=== PATIENT | male | born 1995 | race Caucasian/White ===

== ENCOUNTER 2023-07-29 09:16 | Day surgery (SDC) | payer MEDICARE, OTHER, SELFPAY ==
[2023-07-29] VITALS (11 sets, daily range): BP systolic 105–132; BP diastolic 58–97; PULSE 53–78; RESP 16–18; TEMP 35.8–36.4; O2SAT 93–98
--- OUTSIDE RECORDS SUMMARY | 2023-07-29 09:18 | XMS_ITS | Encounter Summary ---
Author Organization [facility] Address [address] [address] Phone Care Team Providers Care Welding Specialist Name Role Phone Jerry Martinez MD Primary Care Provider [phone] Reason for Visit * Reason Comments Recheck Scalp psoriasis Encounter Details Date Type Department Care Team (Late st Contact Info) Description 05/31/2023 3:30 PM CDT Office Visit [facility] [address] [place] [phone] Clyde Murdock, PASheryl [address] [address] Scalp psoriasis (Primary Dx) Social History Tobacco Use Types Packs/Day Years Used Date Smoking Tobacco: Never Smokeless Tobacco: Never Alcohol Use Standard Drinks/Week Comments Yes 0 (1 standard drink = 0.6 oz pur e alcohol) occasional drink PHQ-2 Answer Date Recorded PHQ-2 Total 0 05/25/2023 Sex and Gender Information Value Date Recorded Sex Assigned at Not on file Gender Identity Not on file Sexual Orientation Not on file Job Start Date Occupation Industry Not on file Not on file Not on file documented as of this encounter Functional Status Functional Status Response Date of Assess ment Patient's Vision Adequate to Safely Complete Daily Activities Yes 05/20/2022 Patient's Memory Adequate to Safely Complete Daily Activities Yes 05/20/2022 Cognitive Status Response Date of Assessm ent Patient's Judgment Adequate to Safely Complete Daily Activities Yes 05/20/2022 documented as of this encounter Patient Instructions * Patient Instructions* Dian Calixto, HORSE RACING MANAGER - 05/31/2023 3:30 PM CDT 1. Scalp psoriasis (Primary) Assessment & Plan: 05/31/23 PLAN: Refills are good for 3 months - Continue Betamethasone Valerate lotion 0.1% twice weekly for maintenance Tuesday and and then for severe flare ups Twice daily for 2-3 weeks when flared and then back down to 2 days a week again Tuesday and . - Continue Ketoconazole shampoo every other day, leave on for 5 minutes and rinse out - Start Ketoconazole cream 2% daily to affected areas of scalp #60 2RF Discussed stress/anxiety management Photos take today RTC 3 months Discussed Otezla, I would need to look into this medication with his seizure disorder and his medications EXAM/DISCUSSION:Improved Patient here for evaluation and treatment of their Psoriasis- this is a follow up visit after pathology confirmation of diagnosis We have reviewed their previously attempted treatments, if applicable. On exam today there are fewer sharply marginated pink-red plaques with mild white-silver scale on the scalp without nail involvement. Patient reports they don't have joint pain or stiffness. Patient reports he does not have any other skin involvement Patient does have on going stress and anxiety Overall there is approximately 2%of the body surface area involved by Psoriasis today. Treatment recommendations are outlined above. It is additionally recommended that the patient talk with their Primary Care Provider if they have any concerns about their joints or heart as people with Psoriasis are at an increased risk for inflammatory conditions in these categories. RTC: 3 months - NEEDS 30 MINUTE APPOINTMENTS Scribed by: TRACI Mendez Orders: - ketoconazole (NIZORAL) 2 % topical cream; Apply topically one time a day. Apply to affected areasof scalp daily Indications: scalp psoriasis documented in this encounter Ordered Prescriptions Prescription Sig Dispensed Refills Start Date End Da te ketoconazole (NIZORAL) 2 % topical creamIndications:scalp psoriasis Apply topically one time a day. Apply to affected areas of scalp daily Indications: scalp psoriasis 60 g 3 05/31/2023 documented in this encounter Progress Notes * Clyde Murdock PA-C - 05/31/2023 3:30 PM CDT Images from the original note were not included. [facility] Office Visit Note Chief Complaint Patient presents with Recheck Scalp psoriasis Patient presents with: other caregiver Grandma Verbal phone consent current? Yes Patient is: Established Patient HPI: Location: scalp Duration: last exam 02/24/23 Timin week ago scalp flared up, unsure why Symptoms/Quality: flaking skin, redness Severity: itching, denies pain Previous Treatment: Cephalexin 500mg three times daily for 10 days, Clindamycin 1% lotion twice daily ran out 1 week ago, Body lotion, Tea tree shampoo Current Treatment: Betamethasone Valerate lotion 0.1% once daily,Ketoconazole shampoo every other day, leave on for 5 minutes and rinse out Associated symptoms: Skin, left temporal scalp, punch: - Psoriasiform dermatitis, see comment. Probable psoriasis. NO sign of fungal infection or bacterial infection COMMENT: The histologic differential diagnosis includes psoriasis vulgaris, sebopsoriasis, and a psoriasiform medication reaction. Seborrheic dermatitis could be considered, but the prominent spongiosis typically associated with the condition is not observed, making this possibility less likely. A PAS stain performed with proper positive control does not reveal evidence of a fungal infection. Clinical correlation is advised. ASSESSMENT / PLAN Dermoscopy was used during the exam of the skin lesions and reveals benign appearing features unless otherwise specified in this note. Problem List Items Addressed This Visit Scalp psoriasis - Primary 05/31/23 PLAN: Refills are good for 3 months - Continue Betamethasone Valerate lotion 0.1% twice weekly for maintenance Tuesday and and then for severe flare ups Twice daily for 2-3 weeks when flared and then back down to 2 days a week again Tuesday and . - Continue Ketoconazole shampoo every other day, leave on for 5 minutes and rinse out - Start Ketoconazole cream 2% daily to affected areas of scalp #60 2RF Discussed stress/anxiety management Photos take today RTC 3 months Discussed Otezla, and this is not an option with his medications. Consider Dannielle EXAM/DISCUSSION:Improved Patient here for evaluation and treatment of their Psoriasis- this is a follow up visit after pathology confirmation of diagnosis We have reviewed their previously attempted treatments, if applicable. On exam today there are fewer sharply marginated pink-red plaques with mild white-silver scale on the scalp without nail involvement. Patient reports they don't have joint pain or stiffness. Patient reports he does not have any other skin involvement Patient does have on going stress and anxiety Overall there is approximately 2%of the body surface area involved by Psoriasis today. Treatment recommendations are outlined above. It is additionally recommended that the patient talk with their Primary Care Provider if they have any concerns about their joints or heart as people with Psoriasis are at an increased risk for inflammatory conditions in these categories. Relevant Medications ketoconazole (NIZORAL) 2 % topical cream RTC: 3 months Scribed by: TRACI Mendez By signing this encounter I attest that I, the provider, personally examined the patient myself andhave reviewed the scribed documentation of this visit and have updated it as necessary. Future Appointments Provider Department Center 08/30/2023 3:30 PM (Arrive by 3:15 PM) Clyde Murdock PA-C [facility] documented in this encounter Miscellaneous Notes * Assessment & Plan Note - Dian Calixto LPN - 05/31/2023 3:15 PM CDT Associated Problem(s): Scalp psoriasis Images from the original note were not included. 05/31/23 PLAN: Refills are good for 3 months - Continue Betamethasone Valerate lotion 0.1% twice weekly for maintenance Tuesday and and then for severe flare ups Twice daily for 2-3 weeks when flared and then back down to 2 days a week again Tuesday and . - Continue Ketoconazole shampoo every other day, leave on for 5 minutes and rinse out - Start Ketoconazole cream 2% daily to affected areas of scalp #60 2RF Discussed stress/anxiety management Photos take today RTC 3 months Discussed Otezla, and this is not an option with his medications. Consider Dannielle EXAM/DISCUSSION:Improved Patient here for evaluation and treatment of their Psoriasis- this is a follow up visit after pathology confirmation of diagnosis We have reviewed their previously attempted treatments, if applicable. On exam today there are fewer sharply marginated pink-red plaques with mild white-silver scale on the scalp without nail involvement. Patient reports they don't have joint pain or stiffness. Patient reports he does not have any other skin involvement Patient does have on going stress and anxiety Overall there is approximately 2%of the body surface area involved by Psoriasis today. Treatment recommendations are outlined above. It is additionally recommended that the patient talk with their Primary Care Provider if they have any concerns about their joints or heart as people with Psoriasis are at an increased risk for inflammatory conditions in these categories. documented in this encounter Plan of Treatment Upcoming Encounters Date Type Department Care Team (Late st Contact Info) Description 08/05/2023 1:00 PM CDT Appointment [facility] [address] [facility] [address] [place] [phone] Donaldo Goldstein MD [address] [place] [address] 08/30/2023 3:30 PM CDT Appointment [facility] [address] [place] [phone] Clyde Murdock PA-C [address] [facility] [address] [place] [address] documented as of this encounter Visit Diagnoses Diagnosis Scalp psoriasis- Primary Other psoriasis documented in this encounter Discontinued Medications Medication Sig Discontinue Reason Start Date End Da te clindamycin (Cleocin-T) 1 % lotion Apply topically as needed for Other (scalp). Patient quit taking 12/18/2022 05/31/2023 documented as of this encounter Care Teams Welding Specialist Relationship Specialty Start Date End Date Jerry Martinez MD [address] [place] [address] PCP - General Internal Medicine 05/09/23 documented as of this encounter
--- OUTSIDE RECORDS SUMMARY | 2023-07-29 09:18 | XMS_ITS | Encounter Summary ---
Author Organization [facility] Address [address] [address] Phone Care Team Providers Care Boiler Welder Name Role Phone Jerry Martinez MD Primary Care Provider [phone] Reason for Referral * Office Visit (Routine) - Closed Specialty Diagnoses / Procedures Referred By Contac t Referred To Contact Neurology Diagnoses Essential hypertension Snoring Masha Hoyt MD [address] [place] [phone] [facility] [address] [phone] Referral ID Status Reason Start Date Expiration Date Visits Re quested Visits Authorized [id number] Closed 07/18/2023 07/12/2024 1 1 Comments consult sleep Encounter Details Date Type Department Care Team (Late st Contact Info) Description 07/13/2023 Orders Only [facility] [address] [phone] Shaila Palmer Essential hypertension (Primary Dx); Snoring Social History Tobacco Use Types Packs/Day Years Used Date Smoking Tobacco: Never Smokeless Tobacco: Never Alcohol Use Standard Drinks/Week Comments Yes 0 (1 standard drink = 0.6 oz pur e alcohol) occasional drink PHQ-2 Answer Date Recorded PHQ-2 Total 4 07/19/2023 Sex and Gender Information Value Date Recorded [...] Yes 05/20/2022 documented as of this encounter Progress Notes * Shaila Palmer - 07/13/2023 8:18 AM CDT Interal/Michelle Sleep study/Medicaid/medica Hypertension/snoring Ess: Notes: telephone note * Jorge Luis Palma - 07/13/2023 8:18 AM CDT Consult nn documented in this encounter Plan of Treatment Upcoming Encounters Date Type Department Care Team (Late st Contact Info) Description 08/05/2023 1:00 PM CDT Appointment [facility] [address] [phone] Donaldo Goldstein MD [address] [place], [place] [address] 08/30/2023 3:30 PM CDT Appointment [facility] [address] [place] [phone] Clyde Murdock PA-C [address] [phone] Scheduled Referrals Name Type Priority Associated Diagnoses Orde r Schedule APPT WITH SLEEP CENTER CC REFERRAL Routine Essential hypertension Snoring Ordered: 07/18/2023 documented as of this encounter Visit Diagnoses Diagnosis Essential hypertension- Primary Unspecified essential hypertension Snoring Other dyspnea and respiratory abnormality documented in this encounter Care Teams Boiler Welder Relationship Specialty Start Date End Date Jerry Martinez MD [address] [place] [address] PCP - General Internal Medicine 05/09/23 documented as of this encounter
--- OUTSIDE RECORDS SUMMARY | 2023-07-29 09:18 | XMS_ITS | Encounter Summary ---
Author Organization [facility] Address [address] [address] Phone Care Team Providers Care Manager Production Name Role Phone Olivier Martinez MD Primary Care Provider [phone] Reason for Referral * Office Visit (Routine) - Closed Specialty Diagnoses / Procedures Referred By Contac t Referred To Contact Neurology Diagnoses Hypertension, unspecified type Snoring Olivier Martinez MD [address] [place] [address] [facility] [address] [place] [phone] Referral ID Status Reason Start Date Expiration Date Visits Re quested Visits Authorized [id number] Closed 07/11/2023 07/10/2024 1 1 Comments Appt with Sleep Center: to schedule Sleep Study Witnessed Apneas (yes/no): no Habitual nightly snoring (yes/no): yes Daytime somnolence (yes/no): Please go to [employer], search for [place] and complete the [place] Sleepiness Scale Enter the [place] Sleepiness Score here: Reason for Visit * Reason Onset Date Comments Referral 07/05/2023 Encounter Details Date Type Department Care Team (Late st Contact Info) Description 07/05/2023 Telephone [facility] [address] [place] [phone] Olivier Martinez MD [address] [place] [address] Referral Social History Tobacco Use Types Packs/Day Years [...] Yes 05/20/2022 documented as of this encounter Miscellaneous Notes * Addendum Note - Olivier Martinez MD - 07/11/2023 8:49 AM CDTAddended by: OLIVIER MARTINEZ on: 07/11/2023 08:49 AM Modules accepted: Orders * Telephone Encounter - Anne-Marie Colon LPN - 07/06/2023 2:58 PM CDT ENT is out of [place]- mom stated that ENT said with patient's snoring and HTN he should be evaluated for sleep apnea- mom stated that ENT stated order should come from PCP. Mom aware PCP out of clinic till Tuesday * Telephone Encounter - Janine Espinoza - 07/05/2023 9:37 AM CDT Patients grandmother, Paige, calling regarding requesting referral be placed for a sleep study as patient ENT recommended it. Routing to nursing for review. documented in this encounter Plan of Treatment Upcoming Encounters Date Type Department Care Team (Late st Contact Info) Description 08/05/2023 1:00 PM CDT Appointment [facility] [address] [facility] [address] [place] [phone] Donaldo Goldstein MD [address] [place] [address] 08/30/2023 3:30 PM CDT Appointment [facility] [address] [place] [phone] Clyde Murdock, PA-C [address] [address] Scheduled Referrals Name Type Priority Associated Diagnoses Orde r Schedule APPT WITH SLEEP CENTER CC REFERRAL Routine Hypertension, unspecified type Snoring Ordered: 07/11/2023 documented as of this encounter Visit Diagnoses Diagnosis Hypertension, unspecified type- Primary Snoring Other dyspnea and respiratory abnormality documented in this encounter Care Teams Manager Production Relationship Specialty Start Date End Date Olivier Martinez MD [address] [place] [phone] PCP - General Internal Medicine 05/09/23 documented as of this encounter
--- OUTSIDE RECORDS SUMMARY | 2023-07-29 09:18 | XMS_ITS | Encounter Summary ---
Author Organization [facility] Address [address] [address] Phone Care Team Providers Care Knitted Cloth Examiner Name Role Phone Jerry Martinez MD Primary Care Provider [phone] Reason for Visit * Reason Comments Refill Request Encounter Details Date Type Department Care Team (Late st Contact Info) Description 05/09/2023 Refill [facility] [address] [place] [phone] Hira Pierre MD [address] [place] [address] [phone] Refill Request Social History Tobacco Use Types Packs/Day Years Used Date Smoking Tobacco: Never Smokeless Tobacco: Never Alcohol Use Standard Drinks/Week Comments Yes 0 (1 standard drink = 0.6 oz pur e alcohol) occasional drink PHQ-2 Answer Date Recorded PHQ-2 Total 2 05/09/2023 Sex and Gender Information Value Date Recorded [...] Yes 05/20/2022 documented as of this encounter Plan of Treatment Upcoming Encounters Date Type Department Care Team (Late st Contact Info) Description 08/05/2023 1:00 PM CDT Appointment [facility] 560 [facility] [address] [place] [phone] Donaldo Goldstein MD [address] [place] [address] 08/30/2023 3:30 PM CDT Appointment [facility] [address] [place] [phone] Clyde Murdock PASheryl [address] [phone] documented as of this encounter Visit Diagnoses Diagnosis Depression with anxiety Dysthymic disorder Hypertension, unspecified type documented in this encounter Care Teams Knitted Cloth Examiner Relationship Specialty Start Date End Date Jerry Martinez MD [address] [place] [address] PCP - General Internal Medicine 05/09/23 documented as of this encounter
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
--- OUTSIDE RECORDS SUMMARY | 2023-07-29 09:18 | XMS_ITS | Encounter Summary ---
Author Organization [facility] Address [address] [address] Phone Care Team Providers Care Banking Officer Name Role Phone Jerry Martinez MD Primary Care Provider [phone] Encounter Details Date Type Department Care Team (Latest Contact Info) Description 05/24/2023 Travel Social History Tobacco Use Types Packs/Day Years [...] Info) Description 08/05/2023 1:00 PM CDT Appointment [facility] [address] [facility] [address] [place] [phone] Donaldo Goldstein MD [address] [place], [place] [phone] 08/30/2023 3:30 PM CDT Appointment [facility] [address] [facility] [phone] Clyde Murdock, JOVANNA-Ghislaine [address] [address] documented as of this encounter Visit Diagnoses Not on filedocumented in this encounter Care Teams Banking Officer Relationship Specialty Start Date End Date Jerry Martinez MD [address] [place] [address] PCP - General Internal Medicine 05/09/23 documented as of this encounter
--- OUTSIDE RECORDS SUMMARY | 2023-07-29 09:18 | XMS_ITS | Encounter Summary ---
Author Organization [facility] Address [address] [address] Phone Care Team Providers Care Clam Grader Name Role Phone Jerry Martinez MD Primary Care Provider [phone] Encounter Details Date Type Department Care Team (Latest Contact Info) Description 07/18/2023 Travel Social History Tobacco Use Types Packs/Day [...] Info) Description 08/05/2023 1:00 PM CDT Appointment [facility] [address] [facility] [address] [place] [phone] Donaldo Goldstein MD [address] [place], [place] [phone] 08/30/2023 3:30 PM CDT Appointment [facility] [address] [facility] [place] [phone] Clyde Murdock, JOVANNA-Ghislaine [address] [address] documented as of this encounter Visit Diagnoses Not on filedocumented in this encounter Care Teams Clam Grader Relationship Specialty Start Date End Date Jerry Martinez MD [address] [place] [address] PCP - General Internal Medicine 05/09/23 documented as of this encounter
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
--- OUTSIDE RECORDS SUMMARY | 2023-07-29 09:19 | XMS_ITS | Encounter Summary ---
Author Organization [facility] Address [address] [address] Phone Care Team Providers Care Ornamental Machine Operator Name Role Phone Unavailable Primary Care Provider Unavailabl e Reason for Visit * Reason Comments Refill Request Encounter Details Date Type Department Care Team (Late st Contact Info) Description 05/03/2023 Refill [facility] INTERNAL MEDICINE [address] [place] [phone] Jerry Martinez MD [address] [place] [address] Refill Request Social History Tobacco Use Types Packs/Day Years Used Date Smoking Tobacco: Never Smokeless Tobacco: Never Alcohol Use Standard Drinks/Week Comments Yes 0 (1 standard drink = 0.6 oz pur e alcohol) occasional drink PHQ-2 Answer Date Recorded PHQ-2 Total 4 02/09/2023 Sex and Gender Information Value Date Recorded [...] Yes 05/20/2022 documented as of this encounter Ordered Prescriptions Prescription Sig Dispensed Refills Start Date End Da te metoprolol succinate (Toprol-XL) 25 MG 24 hour extended-release tabletIndications:Depress ion with anxiety,Hypertension, unspecified type TAKE 1 TABLET BY MOUTH DAILY. DO NOT CRUSH OR CHEW 7 Tablet 05/04/2023 05/09/2023 documented in this encounter Miscellaneous Notes * Telephone Encounter - Rogelio Robertson RN - 05/03/2023 6:58 PM CDT Medication: Metoprolol 25 mg Patient contacted to verify if they are still taking medication: Verify si daily Indication for medication: blood pressure and anxiet When was the medication started: 02/09/23 Last filled by: 7 on 04/24/23 Last assessed date: 02/09/23 Last labs: Why this cannot be refilled per protocol: started on 02/09/23- was to follow up in 1 month- hasn't responded to calls to come in documented in this encounter Plan of Treatment Upcoming Encounters Date Type Department Care Team (Late st Contact Info) Description 08/05/2023 1:00 PM CDT Appointment [facility] [address] [phone] Donaldo Goldstein MD [address] [place], [place] [phone] 08/30/2023 3:30 PM CDT Appointment [facility] [address] [place] [phone] Clyde Murdock PA-C [address] [phone] documented as of this encounter Visit Diagnoses Diagnosis Depression with anxiety Dysthymic disorder Hypertension, unspecified type documented in this encounter Discontinued Medications Medication Sig Discontinue Reason Start Date End Da te metoprolol succinate (Toprol-XL) 25 MG 24 hour extended-release tabletIndications:Depress ion with anxiety,Hypertension, unspecified type TAKE 1 TABLET BY MOUTH DAILY. DO NOT CRUSH OR CHEW 04/24/2023 05/04/2023 documented as of this encounter
--- OUTSIDE RECORDS SUMMARY | 2023-07-29 09:19 | XMS_ITS | Encounter Summary ---
Author Organization [facility] Address [address] [address] Phone Care Team Providers Care Route Delivery Clerk Name Role Phone Unavailable Primary Care Provider Unavailabl e Reason for Visit * Reason Comments Refill Request Encounter Details Date Type Department Care Team (Late st Contact Info) Description 04/24/2023 Refill [facility] INTERNAL MEDICINE [address] [place] [phone] Jerry Martinez MD [address] [place] [address] Refill Request Social History Tobacco Use Types [...] DO NOT CRUSH OR CHEW 7 Tablet 04/24/2023 05/04/2023 documented in this encounter Plan of Treatment Upcoming Encounters Date Type Department Care Team (Late st Contact Info) Description 08/05/2023 1:[address] [facility] [address] [facility] [address] [place] [phone] Donaldo Goldstein MD [address] [place] [address] 08/30/2023 3:30 PM CDT Appointment [facility] DERMATOLOG[facility] [address] [place] [phone] Clyde Murdock, DADA [address] [facility] [address] [place] [address] documented as of this encounter Visit Diagnoses Diagnosis Depression with anxiety Dysthymic disorder Hypertension, unspecified type documented in this encounter Discontinued Medications Medication Sig Discontinue Reason Start Date End Da te metoprolol succinate (Toprol-XL) 25 MG 24 hour extended-release tabletIndications:Depress ion with anxiety,Hypertension, unspecified type Take 1 Tablet by mouth one time a day. Do not crush or chew. 03/28/2023 04/24/2023 documented as of this encounter
--- OUTSIDE RECORDS SUMMARY | 2023-07-29 09:19 | XMS_ITS | Clinical Summary ---
[facility] Address [address], [place] [address] Care Team Providers Care Cord Maker Name Role Phone Unavailable Primary Care Provider Unavailabl e Source Comments You are receiving this document as you are listed as the primary care provider,follow-up provider, or the patient has been referred to you for consultation.This is in compliance with the Medicare and[facility] Cent[facility] EHR Incentive Program,which states Providers who transition their patient to another setting of careor provider of care or refers their patient to another provider of care shouldprovide summary care record for each transition of care or referral. [employer] Allergies Active Allergy Reactions Criticality Noted Date Comments Ziprasidone Other, see comments 08/13/2019 dystonic Medications Medication Sig Dispensed Refills Start Date End Date Status escitalopram oxalate (LEXAPRO) 20 MG tablet Take 1 Tablet by mouth daily. 08/12/2019 Active BRIVIACT 100 MG TABS Take 300 mg by mouth daily. 07/16/2019 Active nortriptyline (PAMELOR) 50 MG capsule Take 1 Capsule by mouth daily. 05/27/2019 Active OXcarbazepine (TRILEPTAL) 600 MG tablet Take 2 Tablets by mouth two times a day. 05/31/2019 Active Social History Tobacco Use Types Packs/Day Years Used Date Smoking Tobacco: Never Smokeless Tobacco: Never Sex and Gender Information Value Date Recorded Sex Assigned at Not on file Gender Identity Not on file Sexual Orientation Not on file Plan of Treatment Health Maintenance Due Date Last Done Comments Hep C Screening (Preventive Services) 1995 Medicare Annual Wellness Visit 1995 HepA (2 of 2 - 2-dose series) 04/06/2009 10/07/2008 HIV Screening (Preventive Services) 2011 HepB (1) 06/11/2014 DTaP/Tdap/Td (7 - Tdap) 10/07/2018 10/08/19, 04/15/2000, 03/24/1998, Additional history exists COVID-19 Vaccine (3 - season) 2022 07/15/2020, 06/17/2020 Influenza (Season Ended) 2023 12/17/2009 Zoster/Shingles (1 of 2) 06/11/2045 Hib Completed 02/09/1999, 02/09, 1995, Additional history exists IPV (Polio) Completed 04/15/2000, 02/09, 1995, Additional history exists MCV4 Aged Out 10/07/2008 No longer eligi ble based on patient's age to complete this topic HPV Vaccine Aged Out No longer eligi ble based on patient's age to complete this topic Pneumococcal Aged Out No longer eligi ble based on patient's age to complete this topic Jayson Ramos Personal/Famil y Self 1995 [address] [address]
--- OUTSIDE RECORDS SUMMARY | 2023-07-29 09:19 | XMS_ITS | Referral Summary ---
Author Organization [facility] Address [address] [place] [address] Care Team Providers Care Receivable Clerk Name Role Phone [facility], [facility] Primary Care Provider Allergies Active Allergy Reactions Criticality Noted Date Comments Ziprasidone Mesylate 06/26/2011 Medications Medication Sig Dispensed Refills Start Date End Date Status LevETIRAcetam (KEPPRA PO) Take 1,500 mg by mouth 2 times daily Active OXCARBAZEPINE PO Take 1,200 mg by mouth 2 times daily Active Social History Tobacco Use Types Packs/Day Years Used Date Smoking Tobacco: Never Alcohol Use Standard Drinks/Week Comments No 0 (1 standard drink = 0.6 oz pur e alcohol) Adolescent Education Answer Date Record ed Getting School Help Needed Not on file 11/07 Sex and Gender Information Value Date Recorded Sex Assigned at Not on file Gender Identity Not on file Sexual Orientation Not on file Last Filed Vital Signs Vital Sign Reading Time Taken Comments Blood Pressure 152/101 06/26/2021 10:31 PM CDT Pulse 71 06/26/2021 10:31 PM CDT Temperature 37.2 ??C (98.9 ??F) 05/27/2016 10:42 PM C DT Respiratory Rate 14 05/27/2016 10:42 PM CDT Oxygen Saturation 99% 06/26/2021 10:54 PM CDT Inhaled Oxygen Concentration - - Weight 93.4 kg (206 lb) 05/27/2016 10:42 PM CDT Height 177.8 cm (5' 10) 05/27/2016 10:42 PM CDT Body Mass Index 29.56 05/27/2016 10:42 PM CDT Plan of Treatment Not on file Care Teams Receivable Clerk Relationship Specialty Start Date End Date [address] [place] [address] PCP - General 05/27/16
--- OUTSIDE RECORDS SUMMARY | 2023-07-29 09:19 | XMS_ITS | Encounter Summary ---
Author Organization [facility] Address [address] [address] Phone Care Team Providers Care Director Hris Name Role Phone Jerry Martinez MD Primary Care Provider [phone] Encounter Details Date Type Department Care Team (Latest Contact Info) Description 05/09/2023 Travel Social History Tobacco Use Types Packs/Day [...] Appointment [facility] [address] [facility] [address] [place] [phone] Donaldo Goldstein MD [address] [place], [place] [phone] 08/30/2023 3:[address] [facility] DERMATOLOG[facility] [address] [place] [phone] Clyde Murdock, JOVANNA-Ghislaine [address] [address] documented as of this encounter Visit Diagnoses Not on filedocumented in this encounter Care Teams Director Hris Relationship Specialty Start Date End Date Jerry Martinez MD [address] [place] [address] PCP - General Internal Medicine 05/09/23 documented as of this encounter
--- OUTSIDE RECORDS SUMMARY | 2023-07-29 09:19 | XMS_ITS | Clinical Summary ---
Author Organization [facility] Address [place], [place] [address] Care Team Providers Care Paraffin Plant Sweater Operator Name Role Phone [facility], [facility] Primary Care Provider Allergies Active Allergy Reactions Criticality Noted Date Comments Ziprasidone Hcl Dystonia 02/15/2013 Medications Medication Sig Dispensed Refills Start Date End Date Status nortriptyline 50 mg capsule Take 50 mg by mouth at bedtime. 05/24/2021 Active OXcarbazepine (TRILEPTAL) 600 mg tablet Take 1,200 mg by mouth 2 times daily. 05/24/2021 Active citalopram (CELEXA) 20 mg tablet Take 20 mg by mouth every morning. 06/25/2021 Active POTASSIUM ORAL Take 1 Tablet by mouth once daily. OTC Nature Made Brand Active brivaracetam (BRIVIACT) 100 mg tabletIndications:Lo calization-related (focal) (partial) idiopathic epilepsy and epileptic syndromes with seizures of localized onset, intractable, without status epilepticus (HC) Take 2 Tablets (200 mg) by mouth 2 times daily 12 hours apart. Do not crush or chew. 120 tablet. 1 07/01/2021 Active Active Problems Problem Noted Date Diagnosed Date Hyponatremia 06/29/2021 Breakthrough seizure 06/29/2021 Traumatic brain injury 11/17/2018 Insomnia 11/17/2018 Depression with generalized anxiety disorder Seizure disorder 03/24/2016 Overview: Description: Secondary to TBI Chronic nasal congestion 2015 Overview: Impression - [id number]: The patient has a history of a septoplasty and complains of left sided congestion. There is some inflammation noted in the turbinates. A sample of Qnasl was given. The patient should use 2 sprays to the left nostril once a day. If he finds this beneficial he can call the office for a prescription or follow up if no improvement. Resolved Problems Problem Noted Date Diagnosed Date Resolved Date Anxiety 07/06/2019 06/29/2021 Generalized anxiety disorder 10/28/2017 06/29/2021 Encounters Date Type Department Care Team Description 06/15/2023 5:40 PM CDT - 06/15/2023 6:10 PM CDT Emergency [facility] Emergency[facility]Urgent Care [address] [place] [address] [place] [address] Pollo Fournier, SAMMIE Facial skin lesion (Primary Dx) Discharge Disposition: Home Self Care 06/15/2023 Travel from Last 3 Months Family History Medical History Relation Name Comments No Known Problems Father No Known Problems Mother Relation Name Status Comments Father Mother Social History Tobacco Use Types Packs/Day Years Used Date Smoking Tobacco: Never Smokeless Tobacco: Never Alcohol Use Standard Drinks/Week Comments Yes 0 (1 standard drink = 0.6 oz pur e alcohol) rare use Social Connections Answer Date Recorded Frequency of Communication with Friends and Fami ly Not on file 05/17/2022 Sex and Gender Information Value Date Recorded Sex Assigned at Not on file Gender Identity Not on file Sexual Orientation Not on file Obstetrics History Last Filed Vital Signs Vital Sign Reading Time Taken Comments Blood Pressure 124/79 06/15/2023 4:56 PM CDT Pulse 80 06/15/2023 4:54 PM CDT Temperature 37.2 ??C (98.9 ??F) 06/15/2023 4:54 PM CD T Respiratory Rate 16 06/15/2023 4:54 PM CDT Oxygen Saturation 95% 06/15/2023 4:54 PM CDT Inhaled Oxygen Concentration - - Weight 99.8 kg (220 lb) 06/15/2023 4:54 PM CDT Height 180.3 cm (5' 11) 06/15/2023 4:54 PM CDT Body Mass Index 30.68 06/15/2023 4:54 PM CDT Plan of Treatment Health Maintenance Due Date Last Done Comments Tdap 06/11/2006 Depression screening for age 12+ 2007 HIV for age 15-65 06/11/2010 BMI (ht and wt on same day) for age 18+ 06/11/2013 Hepatitis C screening for ag e 18-79 06/11/2013 Tetanus booster 2015 COVID-19 vaccine series (2022- season) 2022 07/15/2020, 06/17/2020 Influenza for age 9-49 10/09/2023 Pneumococcal series for age 6-64 Aged Out No longer eligible b ased on patient's age to complete this topic Advance Directives * Full Code (Latest Code Status on File) Date Activated Date Inactivated Comments 06/29/2021 4:10 AM 07/01/2021 3:56 PM Question Answer Comments Code Status Discussion: Discussed * Full Code Date Activated Date Inactivated Comments 12/25/2004 6:18 PM 01/08/2005 9:11 PM Care Teams Paraffin Plant Sweater Operator Relationship Specialty Start Date End Date [facility], [address] [address] PCP - General 03/30/18
--- OUTSIDE RECORDS SUMMARY | 2023-07-29 09:19 | XMS_ITS | Clinical Summary ---
Author Organization [facility] Address [address] [place] [address] Care Team Providers Care Marine Mammal Trainer Name Role Phone [facility], [facility] Primary Care Provider Allergies Active Allergy Reactions [...] 05/27/2016 10:42 PM CDT Plan of Treatment Health Maintenance Due Date Last Done Comments ADVANCE CARE PLANNING 1995 ANNUAL REVIEW OF HM ORDERS 1995 YEARLY PREVENTIVE VISIT 1995 HIV SCREENING 06/11/2010 HEPATITIS C SCREENING 06/11/2013 COVID-19 Vaccine ( season) 2022 07/15/2020, 06/17/2020 PHQ-2 (once per calendar year) 2023 INFLUENZA VACCINE (Season Ended) 2023 11/05/2020, 12/17/2009 DTAP/TDAP/TD IMMUNIZATION (7 - Td or Tdap) 11/05/2030 11/05/2020, 10/07/2008, 04/15/2000, Additional history exists HEPATITIS B IMMUNIZATION Completed 999, 1995, 1995 IPV IMMUNIZATION Completed 04/15/2000, , 1995, Additional history exists MENINGITIS IMMUNIZATION Aged Out 10/07/2008 No l onger eligible based on patient's age to complete this topic HPV IMMUNIZATION Aged Out No longer e ligible based on patient's age to complete this topic Pneumococcal Vaccine: Pediatrics (0 to 5 Years) and At-Risk Patients (6 to 64 Years) Aged Out No longer eligible based on patient's age to complete this topic RSV MONOCLONAL ANTIBODY Aged Out No l onger eligible based on patient's age to complete this topic Care Teams Marine Mammal Trainer Relationship Specialty Start Date End Date [address] [place] [address] PCP - General 05/27/16
[2023-07-29] MEDS: LACTATED RINGERS 1000 ML 1,000 ML 100 ML IV (10:15)
[2023-07-29] MEDS: SODIUM CHLORIDE 0.9 % (FLUSH) 10 ML SYRINGE IVF (10:16)
[2023-07-29] MEDS: CIPROFLOX/DEXAMETH OTIC (nc) 4 DROP EAR-BOTH (10:45)
--- NOTE | 2023-07-29 12:17 | W.ANESCHARGE ---
Anesthesia Charges Start Date/Time Anesthesia Start Date: 07/29/23 Anesthesia Start Time: 10:34 Stop Date/Time Anesthesia Stop Date: 07/29/23 Anesthesia Stop Time: 10:59
--- NOTE | 2023-07-29 13:58 | W.PM.ENTPROC ---
Procedure Note Date of procedure: 07/29/23 Procedure: Preop diagnosis is recurrent serous otitis media bilateral, recurrent acute otitis media, occluded T-tube on right, absent tube on left Postoperative diagnosis same Procedure bilateral myringotomies with placement of permanent T tubes Under general LMA anesthesia the patient was prepped and draped usual fashion. The left ear canal was inspected an inferior radial myringotomy incision was made. Thick mucoid fluid was aspirated. A Morgan T-tube was trimmed and then placed without difficulty. Ciprodex drops were placed The right ear canal was inspected and there is a tube in place but it was completely occluded. This was removed and utilize NA enlarged this the opening and trimmed and placed a new T-tube. Ciprodex drops were also placed. The patient procedure well was taken recovery in satisfactory condition. Blood loss was less than 5 mL. Surgeon: Johnson Fuentes MD
== END 2023-07-29 12:41 | disposition home or self-care (01) ==
LOC: OR 09:17
PROVIDERS: Visit Provider Otolaryngology
PROC: (CPT 69420; principal; 2023-07-29 11:00)
DX: H65.06 Acute serous otitis media, recurrent, bilateral (principal); T85.698A Other mechanical complication of other specified internal prosthetic devices, implants and grafts, initial encounter
CPT/HCPCS: 69436; 00120; J1100; J2250; J2405; J2704; J3010; J7120

== ENCOUNTER 2024-04-13 08:28 | Day surgery (SDC) | payer MEDICARE, OTHER, SELFPAY ==
[2024-04-13] VITALS (13 sets, daily range): BP systolic 106–135; BP diastolic 65–97; PULSE 52–62; RESP 12–16; TEMP 36.4–36.8; O2SAT 92–97; BMI 33.0
[2024-04-13] MEDS: LACTATED RINGERS 500 ML 500 ML 100 ML IV (09:30)
[2024-04-13] MEDS: SODIUM CHLORIDE 0.9 % (FLUSH) 10 ML SYRINGE IVF (09:30)
--- NOTE | 2024-04-13 11:24 | W.ANESCHARGE ---
Anesthesia Charges Start Date/Time Anesthesia Start Date: 04/13/24 Anesthesia Start Time: 10:59 Stop Date/Time Anesthesia Stop Date: 04/13/24 Anesthesia Stop Time: 11:23 Coding CPT Codes CPT Codes: ANESTH EAR SURGERY - 99000 ([id number]) P3 - PATIENT W/SEVERE SYS DISEASE, QK - IMMUNOLOGY TEACHER 2-4 CNCRNT ANES PROC, QX - PAPER COUNTER SVC W/ MD MED DIRECTION
--- NOTE | 2024-04-13 11:56 | W.ANESCHARGE ---
Anesthesia Charges Start Date/Time Anesthesia Start Date: 04/13/24 Anesthesia Start Time: 10:59 Stop Date/Time Anesthesia Stop Date: 04/13/24 Anesthesia Stop Time: 11:23 Coding CPT Codes CPT Codes: ANESTH EAR SURGERY - 40393 ([id number]) P3 - PATIENT W/SEVERE SYS DISEASE, QX - CLAM TREADER TOMC W/ MD MED DIRECTION, QK - BABY SITTER 2-4 CNCRNT ANES PROC
--- NOTE | 2024-04-13 13:47 | W.PM.ENTPROC ---
Procedure Note Date of procedure: 04/13/24 Procedure: Preop diagnosis eustachian tube dysfunction, left serous otitis media, patent right tympanostomy tube Postoperative diagnosis same Procedure left myringotomy with permanent tube placement, inspection of right ear under anesthesia both done with operating microscope Under general mask anesthesia patient was prepped and draped usual fashion. The left ear canal was inspected an inferior radial myringotomy incision was made. A T-tube was trimmed and then placed. Fluid was aspirated and drops were placed. The right ear was inspected and the tube was found to be patent and within normal limits and was left intact. The patient procedure well was taken recovery in satisfactory condition. Blood loss was 0. Surgeon: Johnson Fuentes MD
== END 2024-04-13 13:32 | disposition home or self-care (01) ==
LOC: OR 08:29
PROVIDERS: Visit Provider Otolaryngology
PROC: (CPT 69420; principal; 2024-04-13 11:00)
DX: H65.05 Acute serous otitis media, recurrent, left ear (principal); H69.82 Other specified disorders of Eustachian tube, left ear
CPT/HCPCS: 69436; 00120; 00126; J1100; J2405; J2704; J7120